=== PATIENT | male | born 1955 | race Caucasian/White ===

== ENCOUNTER 2018-05-23 01:34 | Emergency (ER) | payer OTHER ==
[2018-05-23 02:35] LABS: ALT (SGPT) 36 U/L (8-55); AST (SGOT) 23 U/L (5-34); Alkaline Phosphatase 131 U/L (40-150); Anion Gap 19 mmol/L (10-20); BUN (Urea Nitrogen) 18 mg/dL (8.4-25.7); Calc. Creatinine Clearance 0 mL/min (70-130); Calcium 9.5 mg/dL (7.8-10.44); Carbon Dioxide 21 mmol/L (23-31); Chloride 99 mmol/L (98-107); Estimated GFR-MDRD 88; Globulin 2.6 g/dL (2.4-3.5); Glucose 102 mg/dL (80-115); Lipase 36 U/L (8-78); Magnesium 2.1 mg/dL (1.6-2.6); Potassium 4.5 mmol/L (3.5-5.1); Protein, Total 6.6 g/dL (5.8-8.1); Sodium 134 mmol/L (136-145)
[2018-05-23 02:45] LABS: #Basophils 0.1 thou/uL (0.0-0.2); #Eosinphils 2.2 thou/uL (0.0-0.7); #Lymphocytes 2.7 thou/uL (1.20-3.40); #Monocytes 1.2 thou/uL (0.11-0.59); #Neutrophils 10.9 thou/uL (1.40-6.50); %Basophils 0.9 % (0.0-1.0); %Eosinophils 12.6 % (0.0-10.0); %Lymphocytes 15.7 % (21.0-51.0); %Monocytes 6.9 % (0.0-10.0); %Neutrophils 63.9 % (42.0-75.0); Hemoglobin 13.2 g/dL (14.0-18.0); Hypochromia MODERATE=16-30 cells (100X) (0-5/hpf); MDiff Complete? YES; Mean Corpuscular HGB CONC 29.8 g/dL (32.0-36.0); Mean Corpuscular Hemoglobin 24.2 pg (27.0-31.0); Mean Corpuscular Volume 81.2 fL (78.0-98.0); Mean Platelet Volume 8.2 fL (7.4-10.4); PLT Morphology Comment Appears Adequate; Platelet Count 252 thou/uL (130-400); Poikilocytosis MODERATE=16-30 cells (100X) (0-5/hpf); RBC Distribution Width 15.7 % (11.5-14.5); Red Blood Cell (RBC) Count 5.45 mill/uL (4.70-6.10); Target Cells SLIGHT = 2-5 cells (100X) (0-1/hpf)
[2018-05-23 02:49] LABS: Troponin I 0.045 ng/mL (< 0.028)
[2018-05-23 02:55] LABS: CKMB 7.4 ng/mL (0-6.6)
[2018-05-23] MEDS ORDERED: Sodium Chloride 0.9% 100 ML ONE (03:40)
[2018-05-23] MEDS ORDERED: Piperacillin/Tazobactam 3.375 GM VIAL ONE (03:40)
[2018-05-23 03:42] LABS: Bilirubin Negative (Negative); Blood, Urine Small (Negative); Clarity Clear (Clear); Glucose, Urine (Dipstick) Negative (Negative); Leukocyte Negative (Negative); Nitrite Negative (Negative); Protein, Urine (Dipstick) 30 mg/dL (Neg-Trace); Specific Gravity, Urine 1.015 (1.005-1.030); Urobilinogen 0.2 mg/dL (0.2-1.0); pH, Urine 7.5 (5.0-9.0)
[2018-05-23 03:46] LABS: Bacteria/HPF None Seen HPF (None Seen); Squamous Epithelial 0-3 HPF (0-3); WBC/HPF None Seen HPF (0-3)
[2018-05-23] MEDS ORDERED: Sodium Chloride 0.9% 500 ML ONE (03:54)
[2018-05-23] MEDS ORDERED: Vancomycin HCl 500 MG VIAL ONE (03:54)
[2018-05-23] MEDS ORDERED: Furosemide 40 MG/4 ML VIAL ONE ×2 (04:13→04:14)
--- NOTE | 2018-05-23 07:55 | RAD ---
CHEST PA AND LATERAL: History: 63-year-old male with history of coronary artery bypass graft, atrial fibrillation, cough. Congestive heart failure, hypertension, seizures. Comparison: 03-02-18 FINDINGS: There is mild cardiomegaly with post underlying sternotomy and left ICD changes. There is some bilate ral vascular congestion with minimal interstitial edema and pleural effusions bilaterally, slightly g reater on the right side. IMPRESSION: Developing vascular congestion, mild interstitial edema, and pleural effusions with minimal cardiomeg marva, evidence for minimal congestive heart failure, worsening since the prior study. POS: [facility]
== END 2018-05-23 06:33 | disposition short-term general hospital (02) ==
LOC: NAV ERS 01:34
DX: I11.0 Hypertensive heart disease with heart failure (principal); I50.9 Heart failure, unspecified; J18.9 Pneumonia, unspecified organism; R79.89 Other specified abnormal findings of blood chemistry; D72.829 Elevated white blood cell count, unspecified; J44.9 Chronic obstructive pulmonary disease, unspecified; I25.2 Old myocardial infarction; Z79.891 Long term (current) use of opiate analgesic; Z79.899 Other long term (current) drug therapy; Z79.82 Long term (current) use of aspirin
CPT/HCPCS: 36415; 51703; 71046; 80053; 81003; 81015; 82553; 83605; 83690; 83735; 83880; 84484; 85025; 87040; 87086; 93005; 94760; 96365; 96366; 96367; 96375; 96376; J1940; J2543; J3370; J7050